=== PATIENT | female | born 1995 | race African-American/Black ===

== ENCOUNTER 2017-12-05 13:08 | Emergency (ER) | payer MEDICAID ==
[~2017-12-05] VITALS: Ht 157.5 cm; Wt 54.4 kg
[2017-12-05 13:24] VITALS: BP 135/82
[2017-12-05] MEDS ORDERED: Dicyclomine HCl 10mg/5ml oral soln ORAL ONE (13:45)
--- NOTE | 2017-12-05 13:48 | Emergency Room Report ---
History of Present Illness General Chief Complaint: Abdominal Pain Source: Patient Present Illness HPI 22-year-old female presents to the emergency department complaining of 8 out of 10 in severity epigastric abdominal cramping with associated nausea, vomiting and diarrhea times one day. Patient reports she has had 8-9 episodes of nonbloody vomitus she reports 2 episodes of loose stools without blood. She denies black tarry stools. Patient denies recent travel, fevers, or ill contacts with similar symptoms. Patient does report that she has used marijuana products within last 72 hours. She also reports weakness she denies dizziness, loss of consciousness/syncope. Denies chest pain or shortness of breath. Allergies: Coded Allergies: No Known Allergies (Unverified , 12/05/17) Patient History Past Medical History: see triage record Past Surgical History: none Pertinent Family History: none Social History: Reports: drug use - THC Last Menstrual Period: 11/29/17 Now: No : 0 Immunizations: UTD Reviewed Nursing Documentation: PMH: Agreed; PSxH: Agreed Nursing Documentation-PMH Past Medical History: No Stated History Review of Systems All Other Systems: negative except mentioned in HPI Physical Exam Vital Signs Date Time Temp Pulse Resp B/P (MAP) Pulse Ox O2 Delivery O2 Flow Rate FiO2 12/05/17 13:11 97.5 62 18 135/82 98 Room Air 97.5 Sp02 EP Interpretation: reviewed, normal General Appearance: alert, GCS 15, non-toxic, mild distress Head: normocephalic, atraumatic Eyes: bilateral eye normal inspection, bilateral eye PERRL ENT: hearing grossly normal, normal voice Neck: full range of motion Respiratory: lungs clear, normal breath sounds, speaking full sentences Cardiovascular #1: regular rate, rhythm Gastrointestinal: normal bowel sounds, non tender, soft, non-distended, no guarding Rectal: deferred Genitourinary: normal inspection, no CVA tenderness Musculoskeletal: back normal, gait/station normal, normal range of motion, non- tender Neurologic: alert, oriented x3, responsive, motor strength/tone normal, sensory intact, speech normal, grossly normal Psychiatric: judgement/insight normal Skin: normal color, no rash, warm/dry, well hydrated Lymphatic: no adenopathy Medical Decision Making PA Attestation Dr. james is my supervising Physician whom patient management has been discussed with. Diagnostic Impression: Primary Impression: Abdominal pain Qualified Codes: R10.13 - Epigastric pain Additional Impressions: Dehydration, mild Vomiting and diarrhea UTI (urinary tract infection) Qualified Codes: N30.01 - Acute cystitis with hematuria ER Course 22-year-old female presents to the emergency department complaining of 8 out of 10 in severity epigastric abdominal cramping with associated nausea, vomiting and diarrhea times one day. Patient reports she has had 8-9 episodes of nonbloody vomitus she reports 2 episodes of loose stools without blood. She denies black tarry stools. Patient denies recent travel, fevers, or ill contacts with similar symptoms. Patient does report that she has used marijuana products within last 72 hours. She also reports weakness she denies dizziness, loss of consciousness/syncope. Denies chest pain or shortness of breath. Ddx considered but are not limited to Diverticulitis, acute appy, diarrhea,UC, PUD, GE, pancreatitis, gallstone, , Vital signs: are WNL, pt. is afebrile H&PE are most consistent with Gastritis will r/o . ORDERS: -CBC, CMP, LIPASE: Unremarkable -UA: Positive for Infection -URINE HCG: Negative ED INTERVENTIONS: -PO zofran 4mg. / Zantac, Fluids - Bentyl PO Patient reports that her symptoms have improved with ED interventions. Patient is able to tolerate oral fluids. -I do not identify an emergent condition at this time. With current presentation , pt. is stable for close outpatient follow up and conservative treatment. D/ w pt. to return promptly to ED with worsening or new symptoms.- Pt. verbalizes' understanding and agreement with proposed treatment plan.proposed treatment plan. DISCHARGE: At this time pt. is stable for d/c to home. Will provide printed patient care instructions, and any necessary prescriptions. Care plan and follow up instructions have been discussed with the patient prior to discharge. Labs Test 12/05/17 14:15 12/05/17 15:12 White Blood Count 12.0 K/UL (4.8-10.8) Red Blood Count 4.89 M/UL (4.20-5.40) Hemoglobin 13.0 G/DL (12.0-16.0) Hematocrit 40.6 % (37.0-47.0) Mean Corpuscular Volume 83 FL (80-99) Mean Corpuscular Hemoglobin 26.6 PG (27.0-31.0) Mean Corpuscular Hemoglobin Concent 32.1 G/DL (32.0-36.0) Red Cell Distribution Width 12.4 % (11.6-14.8) Platelet Count 263 K/UL (150-450) Mean Platelet Volume 7.0 FL (6.5-10.1) Neutrophils (%) (Auto) % (45.0-75.0) Lymphocytes (%) (Auto) % (20.0-45.0) Monocytes (%) (Auto) % (1.0-10.0) Eosinophils (%) (Auto) % (0.0-3.0) Basophils (%) (Auto) % (0.0-2.0) Differential Total Cells Counted 100 Neutrophils % (Manual) 86 % (45-75) Lymphocytes % (Manual) 7 % (20-45) Monocytes % (Manual) 3 % (1-10) Eosinophils % (Manual) 0 % (0-3) Basophils % (Manual) 0 % (0-2) Band Neutrophils 4 % (0-8) Platelet Estimate Adequate Platelet Morphology Normal Hypochromasia 1+ Sodium Level 137 MMOL/L (136-145) Potassium Level 3.6 MMOL/L (3.5-5.1) Chloride Level 104 MMOL/L (98-107) Carbon Dioxide Level 22 MMOL/L (21-32) Anion Gap 11 mmol/L (5-15) Blood Urea Nitrogen 13 mg/dL (7-18) Creatinine 0.9 MG/DL (0.55-1.30) Estimat Glomerular Filtration Rate > 60 mL/min (>60) Glucose Level 144 MG/DL (74-106) Calcium Level 9.4 MG/DL (8.5-10.1) Total Bilirubin 0.4 MG/DL (0.2-1.0) Aspartate Amino Transf (AST/SGOT) 11 U/L (15-37) Alanine Aminotransferase (ALT/SGPT) 15 U/L (12-78) Alkaline Phosphatase 59 U/L (46-116) Total Protein 7.2 G/DL (6.4-8.2) Albumin 3.9 G/DL (3.4-5.0) Globulin 3.3 g/dL Albumin/Globulin Ratio 1.2 (1.0-2.7) Urine Color Yellow Urine Appearance Slightly cloudy Urine pH 8 (4.5-8.0) Urine Specific Capac 1.015 (1.005-1.035) Urine Protein 2+ (NEGATIVE) Urine Glucose (UA) Negative (NEGATIVE) Urine Ketones 1+ (NEGATIVE) Urine Occult Blood 3+ (NEGATIVE) Urine Nitrite Positive (NEGATIVE) Urine Bilirubin Negative (NEGATIVE) Urine Urobilinogen Normal MG/DL (0.0-1.0) Urine Leukocyte Esterase 2+ (NEGATIVE) Urine RBC 2-4 /HPF (0 - 2) Urine WBC 5-10 /HPF (0 - 2) Urine Squamous Epithelial Cells Few /LPF (NONE/OCC) Urine Bacteria Many /HPF (NONE) Urine Yeast Few /HPF (NONE) Urine HCG, Qualitative Negative (NEGATIVE) Last Vital Signs Date Time Temp Pulse Resp B/P (MAP) Pulse Ox O2 Delivery O2 Flow Rate FiO2 12/05/17 13:24 97.5 62 18 135/82 98 Room Air 97.5 Status: improved Disposition: HOME, SELF-CARE Condition: Stable Scripts Nitrofurantoin Monohyd/M-Cryst* (MACROBID 100 MG*) 100 Mg Capsule 100 MG ORAL EVERY 12 HOURS for 5 Days, #10 CAP Prov: Louisa Gar 12/05/17 Dicyclomine Hcl* (DICYCLOMINE HCL*) 10 Mg Capsule 10 MG PO QID, #12 CAP Prov: Louisa Gar 12/05/17 Ondansetron* (ZOFRAN*) 4 Mg Tablet 4 MG ORAL Q6H PRN for Nausea & Vomiting, #20 TAB Prov: Louisa Gar 12/05/17 Mag Hydrox/Al Hydrox/Simeth (ALUM-MAG HYDROXIDE-SIMETH LIQ) 360 Ml Oral.susp 20 ML PO Q8HR, #360 ML Prov: Louisa Gar 12/05/17 Referrals: [facility],REFERRING (PCP) Patient Instructions: Abdominal Pain, Adult Additional Instructions: Take medications as directed. Follow up with a Primary Care Provider in 3-5 days, even if your symptoms have resolved. --Please review list of primary care clinics, if you do not already have a primary care provider Return sooner to ED if new symptoms occur, or current symptoms become worse. - Please note that this Emergency Department Report was dictated using [employer] superintendent technology software, occasionally this can lead to erroneous entry secondary to interpretation by the dictation equipment. Louisa Gar Dec 05, 2017 13:48
[2017-12-05 14:28] LABS: HEMATOCRIT 40.6 % (37.0-47.0); MEAN CORPUSCULAR VOLUME 83 FL (80-99); PLATELET COUNT 263 K/UL (150-450); RED BLOOD COUNT 4.89 M/UL (4.20-5.40); RED CELL DISTRIBUTION WIDTH 12.4 % (11.6-14.8)
[2017-12-05 14:30] VITALS: BP 136/76
[2017-12-05 14:45] LABS: ANION GAP 11 mmol/L (5-15); BLOOD UREA NITROGEN 13 mg/dL (7-18); CALCIUM 9.4 MG/DL (8.5-10.1); CARBON DIOXIDE 22 MMOL/L (21-32); CHLORIDE 104 MMOL/L (98-107); CREATININE 0.9 MG/DL (0.55-1.30); POTASSIUM 3.6 MMOL/L (3.5-5.1); SODIUM 137 MMOL/L (136-145)
[2017-12-05 14:50] LABS: ALANINE AMINOTRANSFERASE 15 U/L (12-78); ALBUMIN 3.9 G/DL (3.4-5.0); ALBUMIN/GLOBULIN RATIO 1.2 (1.0-2.7); ALKALINE PHOSPHATASE 59 U/L (46-116); ASPARTATE AMINO TRANSFERASE 11 U/L (15-37); BILIRUBIN,TOTAL 0.4 MG/DL (0.2-1.0)
[2017-12-05] MEDS ORDERED: ZOFRAN4 M3 ORAL (15:14)
[2017-12-05] MEDS ORDERED: ALUM-MAG HYDRO360 ML PO (15:14)
[2017-12-05] MEDS ORDERED: DICYCLOMINE HCL10 MG PO (15:14)
[2017-12-05] MEDS ORDERED: Mylanta II UD 30ml ORAL ONE (15:15)
[2017-12-05 15:27] LABS: BILIRUBIN, URINE NEGATIVE (NEGATIVE); GLUCOSE, URINE (UA) NEGATIVE (NEGATIVE); KETONES,URINE 1+ (NEGATIVE); LEUKOCYTE ESTERASE ,URINE 2+ (NEGATIVE); NITRITE,URINE POSITIVE (NEGATIVE); PH,URINE 8 (4.5-8.0); PROTEIN,URINE 2+ (NEGATIVE); UROBILINOGEN,URINE NORMAL MG/DL (0.0-1.0)
[2017-12-05 15:29] LABS: APPEARANCE,URINE SLIGHTLY CLOUDY; COLOR,URINE YELLOW
[2017-12-05] MEDS ORDERED: NITROFURANTOIN100 M2 ORAL (15:52)
[2017-12-05] MEDS ORDERED: Dicyclomine HCl 10mg/5ml oral soln ONE (16:00)
[2017-12-05 16:20] VITALS: BP 130/78
== END 2017-12-05 16:20 | disposition home or self-care (01) ==
LOC: EMR 13:45
DX: N39.0 Urinary tract infection, site not specified (principal); E86.0 Dehydration; R11.10 Vomiting, unspecified; R19.7 Diarrhea, unspecified
CPT/HCPCS: 36415; 80053; 81003; 81025; 85007; 85025; 87086; 87181; 96361; 96374; 96375; 99284; J2405; S0028